=== PATIENT | male | born 1980 | race American Indian/Alaskan Native ===

== ENCOUNTER 2018-12-12 08:27 | Emergency (ER) | payer MEDICAID ==
[2018-12-12] MEDS ORDERED: BOOSTRIX IM ONE (09:11)
--- NOTE | 2018-12-12 09:15 | Emergency Department Report ---
ED Psych HPI - General Chief Complaint: Psych Stated Complaint: SUICIDAL Source: patient Mode of arrival: Ambulatory - History of Present Illness Initial Comments: 38 year old man with suicidal gesture and ideation. He states his twin sister was killed in a motor vehicle accident yesterday. He states he was "suicidal anyway". He admitted to crack cocaine abuse last night as well as alcohol consumption. He scraped his right forearm with a piece of glass. He does not know when his last tetanus shot was. He states that he has a history of asthma and his breathing feels somewhat tight but does not actually have chest tightness pressure or pain. He admits to depression. MD Complaint: suicidal ideation, feels depressed -: Gradual, month(s) Associated Psychiatric Symptoms: depression History of same: Yes Quality: constant Improves With: none Worsens With: none Context: recent alcohol abuse, recent drug abuse Associated Symptoms: denies other symptoms (except as above) Treatments Prior to Arrival: none If Self Harm: admits thoughts of, intentional overdose (cocaine abuse), self- inflicted trauma - Related Data Allergies Allergy/AdvReac Type Severity Reaction Status Date / Time No Known Allergies Allergy Unverified 12/12/18 08:31 ED Review of Systems ROS: Stated complaint: SUICIDAL Other details as noted in HPI Constitutional: denies: chills, fever Eyes: denies: eye pain, eye discharge, vision change ENT: denies: ear pain, throat pain Respiratory: other. denies: cough, shortness of breath, wheezing Cardiovascular: denies: chest pain, palpitations Endocrine: no symptoms reported Gastrointestinal: denies: abdominal pain, nausea, diarrhea Genitourinary: denies: urgency, dysuria Musculoskeletal: as per HPI. denies: back pain, joint swelling, arthralgia Skin: denies: rash, lesions Neurological: denies: headache, weakness, paresthesias Psychiatric: as per HPI, depression, suicidal thoughts. denies: anxiety Hematological/Lymphatic: denies: easy bleeding, easy bruising ED Past Medical Hx - Past Medical History Previous Medical History?: Yes Hx Psychiatric Treatment: Yes (Bi polar) - Surgical History Past Surgical History?: No - Social History Smoking Status: Current Every Day Smoker Substance Use Type: Alcohol, Cocaine ED Physical Exam - General Limitations: No Limitations General appearance: alert, in no apparent distress - Head Head exam: Present: atraumatic, normocephalic - Eye Eye exam: Present: normal appearance. Absent: scleral icterus - ENT ENT exam: Present: mucous membranes moist - Neck Neck exam: Present: normal inspection. Absent: meningismus - Respiratory Respiratory exam: Present: normal lung sounds bilaterally. Absent: respiratory distress - Cardiovascular Cardiovascular Exam: Present: regular rate, normal rhythm. Absent: systolic murmur, diastolic murmur, rubs, gallop - GI/Abdominal GI/Abdominal exam: Present: soft, normal bowel sounds. Absent: distended, tenderness, guarding, rebound - Rectal Rectal exam: Present: deferred - Extremities Exam Extremities exam: Present: normal inspection - Back Exam Back exam: Present: normal inspection - Neurological Exam Neurological exam: Present: alert, oriented X3, CN II-XII intact. Absent: motor sensory deficit - Psychiatric Psychiatric exam: Present: normal affect, normal mood - Skin Skin exam: Present: warm, dry, normal color. Absent: intact (linear abrasion of the dorsum of the forearm probably about 12 cm in length and superficial, dermis intact), rash ED Course Vital Signs 12/12/18 08:33 Temperature 98.1 F Pulse Rate 91 H Respiratory 16 Rate Blood Pressure 112/73 O2 Sat by Pulse 97 Oximetry - Reevaluation(s) Reevaluation #1: Discussed with mental health. 1013 as executed. Transfer is pending. 12/12/18 10:53 ED Medical Decision Making - Lab Data Result diagrams: 12/12/18 09:25 12/12/18 09:25 Laboratory Results - last 24 hr 12/12/18 09:25 Sodium 143 Potassium 3.9 Chloride 101.0 Carbon Dioxide 27 Anion Gap 19 BUN 20 Creatinine 1.0 Estimated GFR > 60 BUN/Creatinine Ratio 20 Glucose 121 H Calcium 9.1 Laboratory Results - last 24 hr 12/12/18 12/12/18 12/12/18 09:25 09:25 09:25 WBC RBC Hgb Hct MCV MCH MCHC RDW Plt Count Lymph % (Auto) [place] % (Auto) Eos % (Auto) Baso % (Auto) Lymph # [place] # Eos # Baso # Seg Neutrophils % Seg Neutrophils # Sodium 143 Potassium 3.9 Chloride 101.0 Carbon Dioxide 27 Anion Gap 19 BUN 20 Creatinine 1.0 Estimated GFR > 60 BUN/Creatinine Ratio 20 Glucose 121 H Calcium 9.1 Total Bilirubin Direct Bilirubin AST ALT Alkaline Phosphatase Total Creatine Kinase CK-MB (CK-2) CK-MB (CK-2) Rel Index Total Protein Albumin Albumin/Globulin Ratio Salicylates < 0.3 L Acetaminophen < 5.0 L Plasma/Serum Alcohol 12/12/18 12/12/18 12/12/18 09:25 09:25 09:25 WBC 10.8 RBC 4.79 Hgb 15.7 H Hct 45.5 MCV 95 H MCH 33 H MCHC 34 RDW 14.2 Plt Count 252 Lymph % (Auto) 24.5 [place] % (Auto) 13.3 H Eos % (Auto) 3.0 Baso % (Auto) 0.3 Lymph # 2.7 [place] # 1.4 H Eos # 0.3 Baso # 0.0 Seg Neutrophils % 58.9 Seg Neutrophils # 6.4 Sodium Potassium Chloride Carbon Dioxide Anion Gap BUN Creatinine Estimated GFR BUN/Creatinine Ratio Glucose Calcium Total Bilirubin 0.20 Direct Bilirubin < 0.2 AST 26 ALT 31 Alkaline Phosphatase 65 Total Creatine Kinase 350 H CK-MB (CK-2) 2.3 CK-MB (CK-2) Rel Index 0.6 Total Protein 7.0 Albumin 4.2 Albumin/Globulin Ratio 1.5 Salicylates Acetaminophen Plasma/Serum Alcohol < 0.01 - EKG Data -: EKG Interpreted by Me EKG shows normal: sinus rhythm, axis, intervals, QRS complexes, ST-T waves Rate: normal - EKG Data Interpretation: no acute changes Critical care attestation.: If time is entered above; I have spent that time in minutes in the direct care of this critically ill patient, excluding procedure time. ED Disposition Clinical Impression: Bipolar disorder with severe depression, Suicidal ideation Forearm abrasion Qualifiers: Encounter type: initial encounter Laterality: right Qualified Code(s): S50.811A - Abrasion of right forearm, initial encounter Disposition: DC/TX-65 PSY HOSP/PSY UNIT Is pt being admited?: No Does the pt Need Aspirin: No Condition: Stable Time of Disposition: 10:53
[2018-12-12 10:04] LABS: BUN/Creatinine Ratio 20; Blood Urea Nitrogen 20 mg/dL (9-20); Calcium 9.1 mg/dL (8.4-10.2); Hemolysis Index 18
[2018-12-12 10:07] LABS: Basophils % (Auto) 0.3 % (0.0-1.8); Eosinophils # (Auto) 0.3 K/mm3 (0.0-0.4); Hematocrit 45.5 % (35.5-45.6); Hemoglobin 15.7 gm/dl (11.8-15.2); Lymphocytes # (Auto) 2.7 K/mm3 (1.2-5.4); Lymphocytes % (Auto) 24.5 % (13.4-35.0); Mean Corpuscular HGB Conc 34 % (32-34); Mean Corpuscular Volume 95 fl (84-94); Monocytes # (Auto) 1.4 K/mm3 (0.0-0.8); Monocytes % (Auto) 13.3 % (0.0-7.3); Platelet Count 252 K/mm3 (140-440); Red Blood Count 4.79 M/mm3 (3.65-5.03); Red Cell Distribution Width 14.2 % (13.2-15.2)
[2018-12-12 10:10] LABS: Creatine Kinase MB 2.3 ng/mL (0.0-4.0)
[2018-12-12 10:11] LABS: Alanine Aminotransferase 31 units/L (7-56); Albumin 4.2 g/dL (3.9-5)
[2018-12-12 10:13] LABS: Bilirubin,Direct < 0.2 mg/dL (0-0.2)
[2018-12-12 12:17] LABS: Bilirubin,Urine NEG (Negative); Blood,Urine NEG (Negative); Color,Urine Yellow (Yellow); Mucus,Urine FEW /HPF; Protein,Urine <15 mg/dL mg/dL (Negative); Urobilinogen,Urine < 2.0 mg/dL (<2.0)
[2018-12-12 12:31] LABS: RBC,Urine < 1.0 /HPF (0.0-6.0)
[2018-12-12 12:35] LABS: Amphetamine Screen,Urine PRESUMPTIVE NEGATIVE; Methadone Screen,Urine PRESUMPTIVE NEGATIVE; Opiate Screen,Urine PRESUMPTIVE NEGATIVE
[2018-12-12 12:53] LABS: Benzodiazepines Screen,Urine PRESUMPTIVE POSITIVE; Cannabinoid Screen,Urine PRESUMPTIVE POSITIVE; Cocaine Screen,Urine PRESUMPTIVE POSITIVE
[2018-12-13] MEDS ORDERED: PROVENTIL IH ONE (11:01)
[2018-12-13] MEDS ORDERED: PROVENTIL IH SCH (14:00)
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
[2018-12-13] MEDS: DESYREL PO SCH (22:15)
[2018-12-14] MEDS ORDERED: IBUPROFEN PO ONE (11:25)
[2018-12-14] MEDS ORDERED: GEODON IM ONE (12:22)
--- NOTE | 2018-12-14 19:10 | Progress Note ---
Subjective - Reason for Consult Consult date: 12/14/18 Reason for consult: follow up - Chief Complaint Chief complaint: "I got upset." 38 year old man with suicidal ideation and self harming behavior by cutting his right forearm. He states suicide is on his mind all the time. He wants inpatient treatment. UDS is positive for benzo, cocaine, and thc. ETOh level is <0.01. He was on the phone over 10minutes and was told to get off the phone by staff. He states he became agitated. He is remorseful for his behavior. Mental Status Exam - Exam Orientation: time, place, person Affect: depressed Mood: congruent with affect Thought content: other (flashbacks and trauma related ) Thought Process: Circumstantial, Tangential Perceptions: none Speech: pressured Concentration: distractible Motor activity: restless Level of consciousness: alert Memory: Intact Sleep Symptoms: Difficulty Falling Asleep Appetite: decreased Interaction: cooperative Mini mental status exam(if necessary): 24-30 Mental Status Exam - Vital signs Last Vital Signs Temp 98.3 F 12/14/18 14:17 Pulse 75 12/14/18 14:17 Resp 18 12/14/18 14:17 BP 104/55 12/14/18 14:17 Pulse Ox 95 12/14/18 14:17 Assessment and Plan Impression: suicidal ideation with self harming behavior by cutting right forearm and burning with cigarettes UDS + for cocaine, thc, and benzo No signs of benzo withdrawal EtOH <0.01 but reports alcohol use history of bipolar disorder and PTSD Cognitive distortions, self harming behavior, mood dysregulation, interpersonal relationship problems, and rage episodes meet criteria for a cluster B personality disorder, but it is unclear if these symptoms occur in the context of substance abuse. Recommendations: Continue 1013 Restart home meds: depakote 500mg bid for mood trazodone 150mg hs for sleep vistaril 25mg tid prn for anxiety hold zoloft due to concerns for mood destabilization associated with bipolar disorder. risks and benefits discussed, including toxicity monitor for benzo or alcohol withdrawal. --none currently dispo: inpatient psychiatric facility staffed with Dr. Martinez
[2018-12-14] MEDS: DESYREL PO SCH (22:15)
--- NOTE | 2018-12-15 10:45 | Progress Note ---
Subjective - Reason for Consult Consult date: 12/15/18 Reason for consult: Psychiatry Follow-up - Chief Complaint Chief complaint: "My life is hard" 38 year old AA male presented to the ER for self harming behavior for cutting his right FA. Today the patient was calm and cooperative during the assessment. He stated that his life is "hard" and he always think about committing suicide. He would not confirm or deny SI's when asked. He stated that the of his sister most recently exacerbated his "suicide behavior." He stated that he need inpatient psy services. He denies HI's and AVh's. He denies any side effects of his medications. Mental Status Exam - Vital signs Last Vital Signs Temp 98.5 F 12/15/18 09:13 Pulse 80 12/15/18 09:13 Resp 16 12/15/18 09:13 BP 104/74 12/15/18 09:13 Pulse Ox 100 12/15/18 09:13 - Exam Narrative exam: MSE: Appearance: calm, cooperative Behavior: regular eye contact Speech: regular rate and tone Mood: "okay" Affect: congruent to mood Thought Process: tangent Thought Content: denies HI's and AVH's Motor Activity: sitting up in bed Cognition: A/O x3 Insight: variable Judgment: variable Assessment and Plan Impression: Unspecified Mood DO. Substance Use DO (cocaine). Cannabis Use DO. Self harming behavior. Today the patient was calm and cooperative during the assessment. DDx: Bipolar DO, Substance Induced Mood DO Recommendation/Plan: Continue 1013, Depakote 500 mg PO BID for mood, Trazodone 150 mg PO HS for sleep, and Vistaril 25 mg PO TID PRN for acute anxiety. Discussed possible suicidality/medication induced jonny with the patient, he verbalized understanding. Dispo: The patient was referred to inpatient psy services. Will staff with Dr Clemente Martinez.
[2018-12-15] MEDS: VISTARIL PO PRN (22:05)
[2018-12-15] MEDS: DESYREL PO SCH (22:05)
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
--- NOTE | 2018-12-16 11:07 | Progress Note ---
Subjective - Reason for Consult Consult date: 12/16/18 Reason for consult: Psychiatry Follow-up - Chief Complaint Chief complaint: "I am doing well today" 38 year old AA male presented to the ER for self harming behavior for cutting his right FA. Today the patient was calm and cooperative during the assessment. He stated that he have done some reflecting about his life and denies that he want to kill himself. He stated that he will follow up with outpatient psy services when discharged. He denies SI/HI's and AVH's. He denies any side effects of hie medications. This is the first day the patient have not endorsed SI's. Mental Status Exam - Vital signs Last Vital Signs Temp 98.3 F 12/16/18 10:15 Pulse 84 12/16/18 10:15 Resp 20 12/16/18 10:15 BP 106/79 12/16/18 10:15 Pulse Ox 99 12/16/18 10:15 - Exam Narrative exam: MSE: Appearance: calm, cooperative Behavior: regular eye contact Speech: regular rate and tone Mood: "okay" Affect: congruent to mood Thought Process: circumstantial Thought Content: denies SI/HI's and AVH's Motor Activity: sitting up in bed Cognition: A/O x3 Insight: variable to fair Judgment: variable to fair Assessment and Plan Impression: Unspecified Mood DO. Substance Use DO (cocaine). Cannabis Use DO. Self harming behavior. Today the patient was calm and cooperative during the assessment. DDx: Bipolar DO, Substance Induced Mood DO Recommendation/Plan: Reevaluate the patient's 1013 in 24 hours. If the patient's 1013 is rescinded, a safety contract and suicide risk assessment will be completed. Continue Depakote 500 mg PO BID for mood, Trazodone 150 mg PO HS for sleep, and Vistaril 25 mg PO TID PRN for acute anxiety. Discussed possible suicidality/medication induced jonny with the patient, he verbalized understanding. Dispo: If the patient's 1013 is rescinded, he can follow up with [facility] for outpatient psy services. Will staff with Dr Clemente Martinez.
[2018-12-16] MEDS: DESYREL PO SCH (22:03)
[2018-12-16] MEDS: VISTARIL PO PRN (22:05)
[2018-12-17] MEDS ORDERED: TYLENOL ONE (00:24)
[2018-12-17] MEDS ORDERED: TYLENOL PO ONE (00:38)
--- NOTE | 2018-12-17 17:57 | Progress Note ---
Subjective - Reason for Consult Reason for consult: psych consult - Chief Complaint Chief complaint: 38 year old BM. Patient today notes that he is doing well. He denies any depression. No SI/HI/AH/VH. He is smiling and engaging- noting that he has various support systems in place (such as his who is waiting for him in the ER) when he discharges. He notes no issues with the meds. No euphoria or psychosis. He's been in contact with aids social worker. Mental Status Exam - Vital signs Last Vital Signs Temp 98.2 F 12/17/18 08:10 Pulse 82 12/17/18 08:10 Resp 18 12/17/18 08:10 BP 109/67 12/17/18 08:10 Pulse Ox 99 12/17/18 08:10 - Exam Orientation: time, place, person Affect: normal Mood: appropriate Thought Process: Intact Perceptions: none Speech: normal rate and pattern Concentration: focused Motor activity: normal Level of consciousness: alert Memory: Intact Interaction: cooperative, pleasant Mini mental status exam(if necessary): 24-30 Assessment and Plan Assessment and Plan Patient notes that he is doing well. He has appropriate support and notes no SI/HI/AH/AH. Impression: Unspecified Mood DO. Substance Use DO (cocaine). Cannabis Use DO. DDx: Bipolar DO, Substance Induced Mood DO Recommendation/Plan: Rescind 1013- follow up with outpatient psychiatry
[2018-12-17 18:27] VITALS: BP 120/72
== END 2018-12-17 18:34 ==
LOC: EEVIPCON 08:27 → ED 08:27
DX: T40.5X2A Poisoning by cocaine, intentional self-harm, initial encounter (principal); S50.811A Abrasion of right forearm, initial encounter; F31.9 Bipolar disorder, unspecified; F32.9 Major depressive disorder, single episode, unspecified; F10.129 Alcohol abuse with intoxication, unspecified; J45.909 Unspecified asthma, uncomplicated; F17.200 Nicotine dependence, unspecified, uncomplicated; X78.0XXA Intentional self-harm by sharp glass, initial encounter; Y92.89 Other specified places as the place of occurrence of the external cause; Y93.89 Activity, other specified; Y99.8 Other external cause status
CPT/HCPCS: 36415; 80048; 80076; 80164; 80307; 81001; 82150; 82550; 82553; 83690; 85025; 90471; 90715; 93005; 93010; 94640; 96372; 99284; G0480; J3486; 80320; Q0177

== ENCOUNTER 2019-07-13 21:06 | Emergency (ER) | payer MEDICAID ==
--- NOTE | 2019-07-13 21:24 | Emergency Department Report ---
Blank Doc - Documentation Documentation: This is a 39-year-old male that presents with SI. Stated wants to kill self. This initial assessment/diagnostic orders/clinical plan/treatment(s) is/are subject to change based on patient's health status, clinical progression and re- assessment by fellow clinical providers in the ED. Further treatment and workup at subsequent clinical providers discretion. Patient/guardians urged not to elope from the ED as their condition may be serious if not clinically assessed and managed. Initial orders include: 1- Patient sent to MAIN ED for further evaluation and treatment 2- lead setter was notified to have patient be brought back [facility]. 3- RN was notified to keep patient as close range and observation until room available 4- Patient presents with substantial risk of imminent harm to self, appears to be so unable to care for his/her own physical health and safety as to create an imminently life-endangering crisis, and has committed/expressed life endangering crisis to self. Due to this and other complaints, patient is put on psych hold.
--- NOTE | 2019-07-13 22:12 | Emergency Department Report ---
HPI - General Chief Complaint: Psych Time Seen by Provider: 07/13/19 21:23 - HPI HPI: 39-year-old -[place] male presents to the emergency department with depression, suicidal ideations and a suicide attempt. The patient has a history of bipolar disorder, depression and PTSD. He previously was on Depakote, Seroquel and trazodone but says he has not been taking them for the past 6 months. The patient recently lost his mother around [place] and then his aunt around . Patient says that he relapsed with his drug use. This evening, around 6:30 PM, the patient took 7 pills of Depakote, 7 of trazodone, 2 pills of Zoloft, smoked some crack and drank 24 ounces of beer. Patient says that he feels dizzy after all of these medications and substances. The patient has a history of suicide attempts in the past. He says that he could also cut his wrists and says that he has access to a revolver. However the patient now says that he is looking to get some help. ED Past Medical Hx - Past Medical History Previous Medical History?: Yes Hx Psychiatric Treatment: Yes (PTSD, bipolar, depression) Hx COPD: Yes - Surgical History Past Surgical History?: No - Social History Smoking Status: Current Every Day Smoker Substance Use Type: Alcohol - Medications Home Medications: Home Medications Medication Instructions Recorded Confirmed Last Taken Type Depakote ER 500 mg PO BID 12/15/18 07/14/19 Unknown History Trazodone HCl 150 mg PO HS 12/15/18 07/14/19 Unknown History ED Review of Systems ROS: Stated complaint: MH Other details as noted in HPI Comment: All other systems reviewed and negative Constitutional: denies: chills, fever Eyes: denies: eye pain, vision change ENT: denies: ear pain, throat pain Respiratory: denies: cough, shortness of breath Cardiovascular: denies: chest pain, palpitations Gastrointestinal: denies: abdominal pain, vomiting Genitourinary: denies: dysuria, discharge Musculoskeletal: denies: back pain, arthralgia Skin: denies: rash, lesions Neurological: other (dizzy). denies: weakness Physical Exam - Physical Exam Physical Exam: GENERAL: The patient is well-developed well-nourished. HEENT: Normocephalic. Atraumatic. Patient has moist mucous membranes. EYES: Extraocular motions are intact. NECK: Supple. Trachea is midline. CHEST/LUNGS: Clear to auscultation. There is no respiratory distress noted. HEART/CARDIOVASCULAR: Regular. There is no tachycardia. There is no murmur. ABDOMEN: Abdomen is soft, nontender. Patient has normal bowel sounds. There is no abdominal distention. SKIN:Skin is warm and dry. . NEURO: The patient is awake, alert, and oriented. The patient is cooperative. The patient has no focal neurologic deficits. Normal speech. Cranial nerves II through XII grossly intact. MUSCULOSKELETAL: There is no tenderness or deformity. There is no limitation range of motion. There is no evidence of acute injury. ED Medical Decision Making - Lab Data Result diagrams: 07/13/19 23:50 07/13/19 22:00 - Medical Decision Making This patient presents to the emergency department with the complaints of depression, suicidal ideations, and what appears to be a suicide attempt. For this reason the patient has been made a 1013. He says that he took 7 Depakote, 7 trazodone, 2 Paxil, some crack cocaine and alcohol. Poison control was contacted. His vital signs have been stable throughout his ED course. The patient has had 2 different EKGs that are normal sinus rhythm without any signs of ST elevation MA, ischemia, dysrhythmia. The QT or QTC intervals never widened. The patient's valproic acid level peaked within the normal range and then has started to trend downwards. The rest of the patient's labs are unremarkable including blood alcohol, including cocaine, except for positive marijuana. At this point it would have been about 9 or 10 hours since the patient's alleged ingestion and/or suicide attempt. He is resting comfortably in no acute distress at this time. He is medically cleared for psychiatric placement. Critical Care Time: No Critical care attestation.: If time is entered above; I have spent that time in minutes in the direct care of this critically ill patient, excluding procedure time. ED Disposition Clinical Impression: Suicidal ideations Depression Qualifiers: Depression Type: unspecified Qualified Code(s): F32.9 - Major depressive disorder, single episode, unspecified Suicide attempt by multiple drug overdose Qualifiers: Encounter type: initial encounter Qualified Code(s): T50.912A - Poisoning by multiple unspecified drugs, medicaments and biological substances, intentional self-harm, initial encounter Disposition: DC/TX-65 PSY HOSP/PSY UNIT Is pt being admited?: No Condition: Stable Referrals: PRIMARY CARE, [Primary Care Provider] - 3-5 Days Time of Disposition: 02:57
[2019-07-13 22:31] LABS: BUN/Creatinine Ratio 17; Blood Urea Nitrogen 12 mg/dL (9-20); Calcium 9.8 mg/dL (8.4-10.2); Hemolysis Index 53
[2019-07-13 22:36] LABS: Alanine Aminotransferase 15 units/L (7-56); Albumin 4.5 g/dL (3.9-5)
[2019-07-13 22:40] LABS: Bilirubin,Direct < 0.2 mg/dL (0-0.2)
[2019-07-13 22:46] LABS: Amphetamine Screen,Urine PRESUMPTIVE NEGATIVE; Benzodiazepines Screen,Urine PRESUMPTIVE NEGATIVE; Cocaine Screen,Urine PRESUMPTIVE NEGATIVE; Methadone Screen,Urine PRESUMPTIVE NEGATIVE; Opiate Screen,Urine PRESUMPTIVE NEGATIVE
[2019-07-13 22:56] LABS: Bilirubin,Urine NEG (Negative); Blood,Urine NEG (Negative); Color,Urine Straw (Yellow); Protein,Urine <15 mg/dL mg/dL (Negative); Urobilinogen,Urine < 2.0 mg/dL (<2.0); WBC,Urine < 1.0 /HPF (0.0-6.0)
[2019-07-13 23:00] LABS: Cannabinoid Screen,Urine PRESUMPTIVE POSITIVE
[2019-07-14 01:19] LABS: Hematocrit 44.4 % (35.5-45.6); Mean Corpuscular Volume 95 fl (84-94); Red Blood Count 4.67 M/mm3 (3.65-5.03)
[2019-07-14 01:20] LABS: Basophils % (Auto) 0.3 % (0.0-1.8); Eosinophils % (Auto) 1.6 % (0.0-4.3); Lymphocytes % (Auto) 27.9 % (13.4-35.0); Mean Corpuscular HGB Conc 34 % (32-34); Monocytes % (Auto) 10.5 % (0.0-7.3); Platelet Count 199 K/mm3 (140-440); Red Cell Distribution Width 13.8 % (13.2-15.2)
[2019-07-14 01:21] LABS: Eosinophils # (Auto) 0.2 K/mm3 (0.0-0.4); Lymphocytes # (Auto) 2.7 K/mm3 (1.2-5.4)
[2019-07-14] MEDS ORDERED: IBUPROFEN 600 MG TAB PO ONE (08:09)
[2019-07-14] MEDS ORDERED: NICOTINE 21 MG/24 HR PATCH TD ONE (12:00)
[2019-07-14 14:04] VITALS: BP 94/73
== END 2019-07-14 17:55 ==
LOC: ED 21:06
DX: T42.6X2A Poisoning by other antiepileptic and sedative-hypnotic drugs, intentional self-harm, initial encounter (principal); T43.212A Poisoning by selective serotonin and norepinephrine reuptake inhibitors, intentional self-harm, initial encounter; T43.222A Poisoning by selective serotonin reuptake inhibitors, intentional self-harm, initial encounter; F32.9 Major depressive disorder, single episode, unspecified; F43.10 Post-traumatic stress disorder, unspecified; F31.9 Bipolar disorder, unspecified; F17.200 Nicotine dependence, unspecified, uncomplicated; J45.909 Unspecified asthma, uncomplicated; Y92.89 Other specified places as the place of occurrence of the external cause
CPT/HCPCS: 36415; 80048; 80076; 80164; 80307; 80320; 81001; 82140; 85025; 93005; 93010; 99284; G0480

== ENCOUNTER 2020-02-26 13:14 | Emergency (ER) | payer MEDICAID ==
[2020-02-26 13:24] VITALS: BP 168/88
[2020-02-26] MEDS ORDERED: ACETAMINOPHEN W/CODEINE 300-30 MG TAB PO ONE (14:46)
--- NOTE | 2020-02-26 15:14 | XRay Report ---
AP AND LATERAL VIEWS BOTH KNEES INDICATION: bilateral knee pain. COMPARISON: No relevant prior imaging study available. FINDINGS: No acute fracture or dislocation is seen bilaterally. No significant degenerative changes. No focal s oft tissue swelling. IMPRESSION: 1. No acute findings. Signer Name: Jevon Jackson MD Signed: 02/26/2020 3:09 PM Workstation Name: [id number]
--- NOTE | 2020-02-26 15:43 | Emergency Department Report ---
ED General Adult HPI - General Chief complaint: Pain General Stated complaint: PAIN 3WKS Time Seen by Provider: 02/26/20 14:17 Source: patient Mode of arrival: Ambulatory Limitations: No Limitations - History of Present Illness Initial comments: 40 yr old male with pmhx of PTSD, bipolar depression presents to ED with multiple complaints. Pt reports that for the past 3 weeks he has been having diffuse joint and muscle pain but more so to bilateral knees, low back and wrist. He states there have been times that while walking he feels like he is about to fall because his knees give out on him. He states any kind of movement makes his joints hurt. He reports swelling mainly to his knees especially to left. He denies injury. He reports associated intermittent dizzy spells, DAN, diffuse abdominal pain, diarrhea and dysuria. He reports no CP, SOB, URI or cough, n/v, fever, chills, neuro symptoms or any other symptoms at this time. He denies any ill contacts, COVID 19 contacts or recent travel. MD Complaint: Diffuse Joint pain, Bilateral LE pain, Low back pain, Abd pain, Diarrhea -: week(s) (3) Severity scale (0 -10): 10 - Related Data Home Medications Medication Instructions Recorded Confirmed Last Taken Depakote ER 500 mg PO BID 12/15/18 07/14/19 Unknown Trazodone HCl 150 mg PO HS 12/15/18 07/14/19 Unknown Previous Rx's Medication Instructions Recorded Last Taken Type Ketorolac [Toradol] 10 mg PO Q6H PRN #20 tablet 02/26/20 Unknown Rx Methocarbamol [Robaxin] 500 mg PO TID PRN #30 tablet 02/26/20 Unknown Rx Allergies Allergy/AdvReac Type Severity Reaction Status Date / Time Fish Containing Products Allergy Rash Verified 07/13/19 21:13 shellfish derived Allergy Rash Verified 07/13/19 21:13 ED Review of Systems ROS: Stated complaint: PAIN 3WKS Other details as noted in HPI Comment: All other systems reviewed and negative Constitutional: denies: chills, diaphoresis, fever, weakness Eyes: denies: eye pain, eye discharge, vision change ENT: denies: ear pain, throat pain Respiratory: denies: cough, shortness of breath, wheezing Cardiovascular: denies: chest pain, palpitations Gastrointestinal: abdominal pain, diarrhea. denies: nausea Genitourinary: dysuria. denies: urgency Musculoskeletal: back pain, joint swelling, arthralgia, myalgia Skin: denies: rash Neurological: headache, vertigo. denies: weakness, numbness, paresthesias, confusion, abnormal gait Psychiatric: denies: anxiety, depression ED Past Medical Hx - Past Medical History Previous Medical History?: Yes Hx Psychiatric Treatment: Yes (PTSD, bipolar, depression) Hx COPD: Yes - Social History Smoking Status: Current Every Day Smoker Substance Use Type: Alcohol - Medications Home Medications: Home Medications Medication Instructions Recorded Confirmed Last Taken Type Depakote ER 500 mg PO BID 12/15/18 07/14/19 Unknown History Trazodone HCl 150 mg PO HS 12/15/18 07/14/19 Unknown History Ketorolac [Toradol] 10 mg PO Q6H PRN #20 tablet 02/26/20 Unknown Rx Methocarbamol [Robaxin] 500 mg PO TID PRN #30 tablet 02/26/20 Unknown Rx ED Physical Exam - General Limitations: No Limitations General appearance: alert, in no apparent distress - Head Head exam: Present: atraumatic, normocephalic, normal inspection - Eye Eye exam: Present: normal appearance, PERRL, EOMI Pupils: Present: normal accommodation - ENT ENT exam: Present: normal exam, normal orophraynx, mucous membranes moist - Neck Neck exam: Present: normal inspection, full ROM - Respiratory Respiratory exam: Absent: normal lung sounds bilaterally, respiratory distress - Cardiovascular Cardiovascular Exam: Present: regular rate, normal rhythm, normal heart sounds - GI/Abdominal GI/Abdominal exam: Present: soft, tenderness (mild diffuse ttp, no guarding or rebound ). Absent: guarding, rebound, rigid - Extremities Exam Extremities exam: Present: normal inspection, full ROM, tenderness (bilateral knees; no apparent swelling, effusion, erythema or ecchymosis ). Absent: pedal edema, joint swelling - Back Exam Back exam: Present: normal inspection, full ROM, paraspinal tenderness (upper lumbar area bilateraly ). Absent: vertebral tenderness - Neurological Exam Neurological exam: Present: alert, oriented X3, CN II-XII intact, normal gait - Psychiatric Psychiatric exam: Present: normal affect, normal mood - Skin Skin exam: Present: intact ED Course Vital Signs 02/26/20 02/26/20 13:23 16:41 Temperature 97.6 F Pulse Rate 90 Respiratory 16 18 Rate Blood Pressure 168/88 [Right] O2 Sat by Pulse 96 Oximetry ED Medical Decision Making - Lab Data Result diagrams: 02/26/20 15:13 02/26/20 15:13 - EKG Data EKG shows normal: sinus rhythm Rate: normal - EKG Data Interpretation: no acute changes, normal EKG - Medical Decision Making 1716 -- Pt presented to ED with multiple complaints -- diffuse muscle pain, joint pain especially in knees, low back pain, abd pain, dysuria, DAN, intermittent dizzy spells and diarrhea. Labs/CT/xray/EKG reviewed - w/u today unremarkable. Pt currently resting comfortably and does not appear to be in any acute distress. He is awake, alert, oriented x 3 and well appearing, not toxic and not dehydrated and he is neurologically intact. He has normal gait Exact cause of patient symptoms unclear but there is no indication for further testing, admission or emergent consult at this time. Discussed results with patient. Encouraged him to f/u with local PCP (name given on d/c instructions) for further evaluation of his symptoms. If he gest worse or if anything changes he should come back to ED. Pt expressed understanding of instructions and agrees with plan. Pt stable at time of d.c Critical care attestation.: If time is entered above; I have spent that time in minutes in the direct care of this critically ill patient, excluding procedure time. ED Disposition Clinical Impression: Joint pain, Abdominal pain, Low back pain, Diarrhea Disposition: TO HOME OR SELFCARE Is pt being admited?: No Does the pt Need Aspirin: No Condition: Stable Instructions: Arthralgia (ED), Knee Pain (ED), Abdominal Pain (ED), Acute Low Back Pain (ED), Acute Diarrhea (ED) Additional Instructions: I recommend you take medications as prescribed. I recommend you follow up with local PCP for further evaluation if your symptoms continues. Return to ED if symptoms changes or worsens. Prescriptions: Methocarbamol [Robaxin] 500 mg PO TID PRN #30 tablet PRN Reason: Pain , Severe (7-10) Ketorolac [Toradol] 10 mg PO Q6H PRN #20 tablet PRN Reason: Pain Referrals: YUNIOR DESIR MD [Staff Physician] - 3-5 Days Time of Disposition: 17:11
--- NOTE | 2020-02-26 15:51 | Cat Scan Report ---
CT ABDOMEN AND PELVIS WITHOUT CONTRAST INDICATION / CLINICAL INFORMATION: abdominal pain/low back pain. TECHNIQUE: Axial CT images were obtained through the abdomen and pelvis without IV contrast. All CT scans at [facility] are performed using CT dose reduction for ALARA by means of automated exposure control. COMPARISON: None available. FINDINGS: LOWER CHEST: No significant abnormality. LIVER: No significant abnormality. GALLBLADDER: No significant abnormality. BILE DUCTS: No significant abnormality. PANCREAS: No significant abnormality. SPLEEN: No significant abnormality. ADRENALS: No significant abnormality. RIGHT KIDNEY / URETER: No significant abnormality. LEFT KIDNEY / URETER: No significant abnormality. STOMACH / SMALL BOWEL: No significant abnormality. COLON: No significant abnormality. APPENDIX: No significant abnormality. PERITONEUM: No free fluid. No free air. No fluid collection. LYMPH NODES: No significant adenopathy. AORTA / ARTERIES: No significant abnormality. IVC / VEINS: No significant abnormality. URINARY BLADDER: No significant abnormality. REPRODUCTIVE ORGANS: No significant abnormality. ADDITIONAL FINDINGS: None. SKELETAL SYSTEM: No significant abnormality. IMPRESSION: No acute abnormality of the abdomen or pelvis. Signer Name: Bakari Schrader MD Signed: 02/26/2020 3:46 PM Workstation Name: [id number]
[2020-02-26 15:57] LABS: Basophils % (Auto) 0.4 % (0.0-1.8); Eosinophils # (Auto) 0.1 K/mm3 (0.0-0.4); Eosinophils % (Auto) 1.5 % (0.0-4.3); Hematocrit 44.7 % (35.5-45.6); Hemoglobin 15.2 gm/dl (11.8-15.2); Lymphocytes # (Auto) 1.8 K/mm3 (1.2-5.4); Mean Corpuscular HGB Conc 34 % (32-34); Mean Corpuscular Volume 95 fl (84-94); Monocytes # (Auto) 1.2 K/mm3 (0.0-0.8); Monocytes % (Auto) 12.6 % (0.0-7.3); Platelet Count 199 K/mm3 (140-440); Red Blood Count 4.72 M/mm3 (3.65-5.03); Red Cell Distribution Width 13.5 % (13.2-15.2)
[2020-02-26 16:00] LABS: Alanine Aminotransferase 16 units/L (7-56); Albumin 4.3 g/dL (3.9-5); BUN/Creatinine Ratio 26; Blood Urea Nitrogen 21 mg/dL (9-20); Calcium 9.7 mg/dL (8.4-10.2); Hemolysis Index 34
[2020-02-26 16:51] LABS: Bilirubin,Urine NEG (Negative); Blood,Urine NEG (Negative); Color,Urine Yellow (Yellow); Mucus,Urine FEW /HPF; Protein,Urine <15 mg/dL mg/dL (Negative); WBC,Urine < 1.0 /HPF (0.0-6.0)
== END 2020-02-26 17:20 | disposition home or self-care (01) ==
LOC: ED 13:14
DX: M54.5 Low back pain (principal); R10.9 Unspecified abdominal pain; R19.7 Diarrhea, unspecified; M25.562 Pain in left knee; M25.561 Pain in right knee; F31.9 Bipolar disorder, unspecified; J44.9 Chronic obstructive pulmonary disease, unspecified; F17.200 Nicotine dependence, unspecified, uncomplicated; Z79.899 Other long term (current) drug therapy; Z91.013 Allergy to seafood
CPT/HCPCS: 36415; 74176; 80053; 81001; 83690; 84484; 85025; 93005

== ENCOUNTER 2020-02-28 11:20 | Emergency (ER) | payer MEDICAID ==
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
[2020-02-28 12:35] LABS: Basophils % (Auto) 0.3 % (0.0-1.8); Eosinophils # (Auto) 0.2 K/mm3 (0.0-0.4); Eosinophils % (Auto) 1.5 % (0.0-4.3); Hematocrit 46.8 % (35.5-45.6); Hemoglobin 15.9 gm/dl (11.8-15.2); Lymphocytes # (Auto) 1.6 K/mm3 (1.2-5.4); Lymphocytes % (Auto) 12.4 % (13.4-35.0); Mean Corpuscular HGB Conc 34 % (32-34); Mean Corpuscular Volume 94 fl (84-94); Monocytes # (Auto) 1.7 K/mm3 (0.0-0.8); Monocytes % (Auto) 13.4 % (0.0-7.3); Platelet Count 232 K/mm3 (140-440); Red Blood Count 4.98 M/mm3 (3.65-5.03)
[2020-02-28 12:51] LABS: BUN/Creatinine Ratio 25; Blood Urea Nitrogen 25 mg/dL (9-20); Calcium 9.8 mg/dL (8.4-10.2); Hemolysis Index 18
[2020-02-28 14:53] LABS: Bilirubin,Urine NEG (Negative); Blood,Urine NEG (Negative); Color,Urine Yellow (Yellow); Mucus,Urine FEW /HPF; Protein,Urine <15 mg/dL mg/dL (Negative); Urobilinogen,Urine < 2.0 mg/dL (<2.0)
[2020-02-28 15:00] LABS: Amphetamine Screen,Urine PRESUMPTIVE NEGATIVE; Benzodiazepines Screen,Urine PRESUMPTIVE NEGATIVE; Cannabinoid Screen,Urine PRESUMPTIVE POSITIVE; Cocaine Screen,Urine PRESUMPTIVE POSITIVE; Methadone Screen,Urine PRESUMPTIVE NEGATIVE; Opiate Screen,Urine PRESUMPTIVE NEGATIVE
[2020-02-28] MEDS: traZODone 50 MG TAB PO SCH (22:27)
[2020-02-28] MEDS: DIVALPROEX ER 500 MG TAB PO SCH (22:28)
[2020-02-29] MEDS ORDERED: ZIPRASIDONE MESYLATE 20 MG VIAL IM ONE (09:51)
[2020-02-29] MEDS ORDERED: LORazepam 2 MG/ML VIAL ONE (09:51)
[2020-02-29] MEDS ORDERED: SERTRALINE 50 MG TAB PO SCH (10:00)
[2020-02-29] MEDS ORDERED: ZIPRASIDONE MESYLATE 20 MG VIAL IM PRN (10:05)
[2020-02-29] MEDS ORDERED: LORazepam 2 MG/ML VIAL IV ONE (10:06)
[2020-02-29] MEDS: DIVALPROEX ER 500 MG TAB PO SCH ×2 (11:34→21:56)
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
[2020-02-29 20:53] VITALS: BP 107/87
[2020-02-29] MEDS: traZODone 50 MG TAB PO SCH (21:57)
== END 2020-03-01 02:00 ==
LOC: ED 11:20 → EEVIPCON 11:20 → ED 03-01 02:00
DX: F43.10 Post-traumatic stress disorder, unspecified (principal); F14.10 Cocaine abuse, uncomplicated; Z91.14 Patient's other noncompliance with medication regimen; Z04.6 Encounter for general psychiatric examination, requested by authority; J44.9 Chronic obstructive pulmonary disease, unspecified; F31.9 Bipolar disorder, unspecified; F17.200 Nicotine dependence, unspecified, uncomplicated; F12.10 Cannabis abuse, uncomplicated; Z79.899 Other long term (current) drug therapy; Z91.013 Allergy to seafood
CPT/HCPCS: 36415; 80048; 80164; 80307; 81001; 85025; 96372; 96374; 99285; J2060; J3486; 80320; G0480

== ENCOUNTER 2020-03-09 12:12 | Emergency (ER) | payer MEDICAID ==
--- NOTE | 2020-03-09 13:02 | Event Note ---
ED Screening Note Date of service: 03/09/20 Time: 13:01 ED Screening Note: 30-year-old male with a history of depression, bipolar and PTSD presents for homicidal ideation and auditory hallucination telling him to kill someone This initial assessment/diagnostic orders/clinical plan/treatment(s) is/are subject to change based on patients health status, clinical progression and re- assessment by fellow clinical providers in the ED. Further treatment and workup at subsequent clinical providers discretion. Patient/guardian urged not to elope from the ED as their condition may be serious if not clinically assessed and managed. Initial orders include: Psych protocol ordered
[2020-03-09 13:46] LABS: Hematocrit 46.6 % (35.5-45.6); Hemoglobin 15.7 gm/dl (11.8-15.2); Mean Corpuscular HGB Conc 34 % (32-34); Mean Corpuscular Volume 96 fl (84-94); Platelet Count 275 K/mm3 (140-440); Red Blood Count 4.83 M/mm3 (3.65-5.03); Red Cell Distribution Width 13.7 % (13.2-15.2)
[2020-03-09 14:07] LABS: BUN/Creatinine Ratio 30; Blood Urea Nitrogen 39 mg/dL (9-20); Calcium 9.6 mg/dL (8.4-10.2); Hemolysis Index 6
[2020-03-09 14:15] LABS: Bilirubin,Urine NEG (Negative); Blood,Urine NEG (Negative); Color,Urine Yellow (Yellow); Mucus,Urine FEW /HPF; Protein,Urine <15 mg/dL mg/dL (Negative); RBC,Urine < 1.0 /HPF (0.0-6.0); Urobilinogen,Urine < 2.0 mg/dL (<2.0)
[2020-03-09 14:21] LABS: Amphetamine Screen,Urine Negative; Benzodiazepines Screen,Urine Negative; Methadone Screen,Urine Negative; Opiate Screen,Urine Negative
[2020-03-09 14:23] LABS: Basophils % (Manual) 0 % (0.0-1.8); Eosinophils % (Manual) 0 % (0.0-4.3); Platelet Estimate Consistent w Auto; RBC Morphology Normal; Total Cells Counted 100
[2020-03-09] MEDS ORDERED: ALPRAZolam 0.5 MG TAB PO ONE (14:56)
[2020-03-09 14:58] LABS: Cannabinoid Screen,Urine Positive; Cocaine Screen,Urine Positive
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
[2020-03-10] MEDS: DIVALPROEX ER 500 MG TAB PO SCH ×2 (11:14→23:44)
[2020-03-10] MEDS: risperiDONE 0.25 MG TAB PO SCH ×3 (11:14→23:45)
--- NOTE | 2020-03-10 22:35 | XRay Report ---
LEFT HAND 3 VIEWS LEFT WRIST 4 VIEWS INDICATION / CLINICAL INFORMATION: Left hand and wrist injury. COMPARISON: None available. FINDINGS: BONES and JOINT(S): No acute fracture or subluxation. No significant arthritis. SOFT TISSUES: No significant abnormality. ADDITIONAL FINDINGS: None. IMPRESSION: 1. No acute findings. Signer Name: Bakari Schrader MD Signed: 03/10/2020 10:30 PM Workstation Name: [id number]
--- NOTE | 2020-03-10 22:35 | XRay Report ---
LEFT HAND 3 VIEWS LEFT WRIST 4 VIEWS INDICATION / CLINICAL INFORMATION: Left hand and wrist injury. COMPARISON: None available. FINDINGS: BONES and JOINT(S): No acute fracture or subluxation. No significant arthritis. SOFT TISSUES: No significant abnormality. ADDITIONAL FINDINGS: None. IMPRESSION: 1. No acute findings. Signer Name: Bakari Schrader MD Signed: 03/10/2020 10:30 PM Workstation Name: [id number]
[2020-03-10] MEDS: traZODone 50 MG TAB PO SCH (23:43)
[2020-03-11] MEDS: risperiDONE 0.25 MG TAB PO SCH ×2 (10:58→21:32)
[2020-03-11] MEDS: DIVALPROEX ER 500 MG TAB PO SCH ×2 (10:58→21:31)
--- NOTE | 2020-03-11 11:30 | Progress Note ---
Subjective - Reason for Consult Consult date: 03/11/20 Reason for consult: MHE Requesting physician: ROBERTO MCCARTHY - Chief Complaint Chief complaint: Psych HPI Patient seen this AM, reports persistent depressed mood and SI. Describes sleep as on and off, appetite okay. Patient also endorses hearing voices. REVIEW OF SYSTEMS Constitutional: Negative for weight loss ENT: Negative for stridor Respiratory: Negative for cough or hemoptysis All other systems reviewed and are negative MENTAL STATUS EXAMINATION General Appearance: dressed appropriately Behavior: calm and cooperative. Mood: Depressed Affect and affective range: restricted, tearful Thought Process: goal directed Thought Content: Hallucinations Speech: Normal volume, Regular rate and rhythm Suicidal Ideation: Suicidal Homicidal Ideation: Denies HI Hallucinations: Auditory Delusions: None elicited Insight and Judgment: Limited Memory: Normal Assessment and Plan - Psychiatric problem (1) Major Depressive Disorder, Severe Current Visit: Yes Status: Acute (2) Cocaine Use Disorder Current Visit: Yes Status: Acute (3)Substance Induced Mood Disorderr Current Visit: Yes Status: Acute RECOMMENDATIONS Start Rispseridone 0.25mg po BID Start home depakote 500mg po BID Start Trazodone 50mg po qh Risks, benefits and alternatives of medications discussed with the patient, questions answered and consent obtained from patient. PSYCHOTHERAPY: Supportive psychotherapy provided MEDICAL: Per primary team DELIRIUM PRECAUTIONS: Please re-orient patient frequently, keep lights on during the day, and minimize benzodiazepines and opiates as these medications could worsen patient's confusion. 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 Please contact with any questions and/or concerns. Mental Status Exam - Vital signs Last Vital Signs Temp 98.6 F 03/11/20 09:36 Pulse 94 H 03/11/20 09:36 Resp 18 03/11/20 09:36 BP 132/83 03/11/20 09:36 Pulse Ox 96 03/11/20 09:36
[2020-03-11] MEDS: traZODone 50 MG TAB PO SCH (21:30)
--- NOTE | 2020-03-12 10:26 | Progress Note ---
Subjective - Reason for Consult Consult date: 03/12/20 Reason for consult: MHE Requesting physician: SHANNAN MCCARTHY - Chief Complaint Chief complaint: Psych HPI Patient seen this AM in room, says he is still don, depressed, grumpy and agitated and would like to know when he will be getting placed. Patient endorses SI, and HI. Reports night disturbances mostly nightmares. REVIEW OF SYSTEMS Constitutional: Negative for weight loss ENT: Negative for stridor Respiratory: Negative for cough or hemoptysis All other systems reviewed and are negative MENTAL STATUS EXAMINATION General Appearance: dressed appropriately Behavior: calm and cooperative. Mood: Depressed Affect and affective range: restricted, depressed Thought Process: goal directed Thought Content: Hallucinations Speech: Normal volume, Regular rate and rhythm Suicidal Ideation: Suicidal Homicidal Ideation: Denies HI Hallucinations: Auditory Delusions: None elicited Insight and Judgment: Limited Memory: Normal Assessment and Plan - Psychiatric problem (1) Major Depressive Disorder, Severe Current Visit: Yes Status: Acute (2) Cocaine Use Disorder Current Visit: Yes Status: Acute (3)Substance Induced Mood Disorderr Current Visit: Yes Status: Acute RECOMMENDATIONS Started haldol 2mg BID Start home depakote 500mg po BID Start Trazodone 50mg po qh Risks, benefits and alternatives of medications discussed with the patient, questions answered and consent obtained from patient. PSYCHOTHERAPY: Supportive psychotherapy provided MEDICAL: Per primary team DELIRIUM PRECAUTIONS: Please re-orient patient frequently, keep lights on during the day, and minimize benzodiazepines and opiates as these medications could worsen patient's confusion. 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 Please contact with any questions and/or concerns. Mental Status Exam - Vital signs Last Vital Signs Temp 97.6 F 03/12/20 08:07 Pulse 90 03/12/20 08:07 Resp 20 03/12/20 08:07 BP 122/71 03/12/20 08:07 Pulse Ox 98 03/12/20 08:07
[2020-03-12] MEDS: DIVALPROEX ER 500 MG TAB PO SCH ×2 (10:56→21:55)
[2020-03-12] MEDS ORDERED: risperiDONE 0.25 MG TAB ONE (10:56)
[2020-03-12] MEDS: risperiDONE 0.25 MG TAB PO SCH (18:58)
[2020-03-12] MEDS: HALOPERIDOL 2 MG TAB PO SCH (21:55)
[2020-03-12] MEDS: traZODone 50 MG TAB PO SCH (21:55)
--- NOTE | 2020-03-13 08:11 | Progress Note ---
Subjective - Reason for Consult Consult date: 03/13/20 Reason for consult: MHE Requesting physician: ROBERTO MCCARTHY - Chief Complaint Chief complaint: Psych HPI Patient seen this AM, says he would like to be discharged and he got a place that already accepted him if discharged. Informed patient he has said similar things in the past and we wont be going through same cycle and my recommendation for placement stands, will ask nurse to review information. Patient became angry, patient also seen walking over to another patients room and grabbing their food, when nurse confronts him, he became aggressive. REVIEW OF SYSTEMS Constitutional: Negative for weight loss ENT: Negative for stridor Respiratory: Negative for cough or hemoptysis All other systems reviewed and are negative MENTAL STATUS EXAMINATION General Appearance: dressed appropriately Behavior: calm and cooperative. Mood: Depressed Affect and affective range: restricted, depressed Thought Process: goal directed Thought Content: Hallucinations Speech: Normal volume, Regular rate and rhythm Suicidal Ideation: Suicidal Homicidal Ideation: Denies HI Hallucinations: Auditory Delusions: None elicited Insight and Judgment: Limited Memory: Normal Assessment and Plan - Psychiatric problem (1) Major Depressive Disorder, Severe Current Visit: Yes Status: Acute (2) Cocaine Use Disorder Current Visit: Yes Status: Acute (3)Substance Induced Mood Disorderr Current Visit: Yes Status: Acute RECOMMENDATIONS Started haldol 2mg BID Start home depakote 500mg po BID Start Trazodone 50mg po qh Risks, benefits and alternatives of medications discussed with the patient, questions answered and consent obtained from patient. PSYCHOTHERAPY: Supportive psychotherapy provided MEDICAL: Per primary team DELIRIUM PRECAUTIONS: Please re-orient patient frequently, keep lights on during the day, and minimize benzodiazepines and opiates as these medications could worsen patient's confusion. 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 Please contact with any questions and/or concerns. Mental Status Exam - Vital signs Last Vital Signs Temp 98.3 F 03/12/20 19:18 Pulse 93 H 03/12/20 19:18 Resp 20 03/12/20 19:18 BP 122/88 03/12/20 19:18 Pulse Ox 96 03/12/20 19:18
[2020-03-13] MEDS: HALOPERIDOL 2 MG TAB PO SCH ×2 (09:44→22:23)
[2020-03-13] MEDS: DIVALPROEX ER 500 MG TAB PO SCH ×2 (09:44→22:23)
[2020-03-13 14:35] LABS: Basophils # (Auto) 0.1 K/mm3 (0.0-0.1); Basophils % (Auto) 0.7 % (0.0-1.8); Eosinophils # (Auto) 0.2 K/mm3 (0.0-0.4); Eosinophils % (Auto) 2.6 % (0.0-4.3); Hematocrit 45.2 % (35.5-45.6); Hemoglobin 15.6 gm/dl (11.8-15.2); Lymphocytes # (Auto) 2.2 K/mm3 (1.2-5.4); Lymphocytes % (Auto) 23.7 % (13.4-35.0); Mean Corpuscular HGB Conc 34 % (32-34); Mean Corpuscular Volume 96 fl (84-94); Monocytes # (Auto) 1.2 K/mm3 (0.0-0.8); Monocytes % (Auto) 13.2 % (0.0-7.3); Platelet Count 254 K/mm3 (140-440); Red Blood Count 4.73 M/mm3 (3.65-5.03); Red Cell Distribution Width 13.2 % (13.2-15.2)
[2020-03-13] MEDS: traZODone 50 MG TAB PO SCH (22:23)
--- NOTE | 2020-03-14 09:50 | Progress Note ---
Subjective - Reason for Consult Consult date: 03/14/20 Reason for consult: MHE Requesting physician: ROBERTO MCCARTHY - Chief Complaint Chief complaint: Psych HPI Saw Mr Ornelas in room this AM, he is requesting to be discharged, angry and irritable. Again I informed patient he has a very similar pattern of behavior, coming in with SI, Hi and then requesting discharge 2-3 days later. I informed him the importance of mental health intervention for his mood disability. REVIEW OF SYSTEMS Constitutional: Negative for weight loss ENT: Negative for stridor Respiratory: Negative for cough or hemoptysis All other systems reviewed and are negative MENTAL STATUS EXAMINATION General Appearance: dressed appropriately Behavior: calm and cooperative. Mood: irritable, Affect and affective range: angry, irritated and dysthymic Thought Process: goal directed Thought Content: Hallucinations Speech: Normal volume, Regular rate and rhythm Suicidal Ideation: denies Homicidal Ideation: Denies HI Hallucinations: Auditory Delusions: None elicited Insight and Judgment: Limited Memory: Normal Assessment and Plan - Psychiatric problem (1) Major Depressive Disorder, Severe Current Visit: Yes Status: Acute (2) Cocaine Use Disorder Current Visit: Yes Status: Acute (3)Substance Induced Mood Disorderr Current Visit: Yes Status: Acute RECOMMENDATIONS Started haldol 2mg BID Start home depakote 500mg po BID Start Trazodone 50mg po qh Risks, benefits and alternatives of medications discussed with the patient, questions answered and consent obtained from patient. PSYCHOTHERAPY: Supportive psychotherapy provided MEDICAL: Per primary team DELIRIUM PRECAUTIONS: Please re-orient patient frequently, keep lights on during the day, and minimize benzodiazepines and opiates as these medications could worsen patient's confusion. TITLE SPECIALIST: DISPOSITION: Recommend acute inpatient psychiatric hospitalization at this time LEGAL STATUS: 1013 FOLLOW-UP: Will follow Thank you for the consult. Please contact with any questions and/or concerns. Mental Status Exam - Vital signs Last Vital Signs Temp 98.0 F 03/14/20 08:16 Pulse 67 03/14/20 08:16 Resp 18 03/14/20 08:16 BP 120/74 03/14/20 08:16 Pulse Ox 100 03/14/20 08:16
[2020-03-14] MEDS: HALOPERIDOL 2 MG TAB PO SCH ×2 (11:28→22:23)
[2020-03-14] MEDS: DIVALPROEX ER 500 MG TAB PO SCH ×2 (11:28→22:23)
[2020-03-14] MEDS: traZODone 50 MG TAB PO SCH (22:23)
[2020-03-15 00:13] LABS: Blood Urea Nitrogen 18 mg/dL (9-20); Calcium 9.4 mg/dL (8.4-10.2); Hemolysis Index 113
[2020-03-15 00:16] LABS: BUN/Creatinine Ratio 30
--- NOTE | 2020-03-15 09:23 | Progress Note ---
Subjective - Reason for Consult Consult date: 03/15/20 Reason for consult: MHE Requesting physician: CLAY MCLEOD - Chief Complaint Chief complaint: Psych HPI Patient seen this AM, brighter affect, reports speaking to his hospice case manager, has been provided with a detention information that he would like to go to and has perisstently denies SI thoughts for 3 days now. REVIEW OF SYSTEMS Constitutional: Negative for weight loss ENT: Negative for stridor Respiratory: Negative for cough or hemoptysis All other systems reviewed and are negative MENTAL STATUS EXAMINATION General Appearance: dressed appropriately Behavior: calm and cooperative. Mood: irritable, Affect and affective range: angry, irritated and dysthymic Thought Process: goal directed Thought Content: Hallucinations Speech: Normal volume, Regular rate and rhythm Suicidal Ideation: denies Homicidal Ideation: Denies HI Hallucinations: Auditory Delusions: None elicited Insight and Judgment: Limited Memory: Normal Assessment and Plan - Psychiatric problem (1) Major Depressive Disorder, Severe Current Visit: Yes Status: Acute (2) Cocaine Use Disorder Current Visit: Yes Status: Acute (3)Substance Induced Mood Disorderr Current Visit: Yes Status: Acute RECOMMENDATIONS Started haldol 2mg BID Start home depakote 500mg po BID Start Trazodone 50mg po qh Risks, benefits and alternatives of medications discussed with the patient, questions answered and consent obtained from patient. PSYCHOTHERAPY: Supportive psychotherapy provided MEDICAL: Per primary team DELIRIUM PRECAUTIONS: Please re-orient patient frequently, keep lights on during the day, and minimize benzodiazepines and opiates as these medications could worsen patient's confusion. 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 Please contact with any questions and/or concerns. Mental Status Exam - Vital signs Last Vital Signs Temp 98.3 F 03/15/20 01:10 Pulse 95 H 03/15/20 01:10 Resp 20 03/15/20 01:10 BP 127/68 03/15/20 01:10 Pulse Ox 98 03/15/20 01:10
[2020-03-15] MEDS: DIVALPROEX ER 500 MG TAB PO SCH (10:17)
[2020-03-15] MEDS: HALOPERIDOL 2 MG TAB PO SCH (10:23)
[2020-03-15 10:29] VITALS: BP 127/77
== END 2020-03-15 14:39 ==
LOC: ED 12:12 → EEVIPCON 12:12 → ED 03-15 14:39
DX: R45.851 Suicidal ideations (principal); R45.850 Homicidal ideations; R44.2 Other hallucinations; Z72.89 Other problems related to lifestyle; F14.10 Cocaine abuse, uncomplicated; F31.9 Bipolar disorder, unspecified; J44.9 Chronic obstructive pulmonary disease, unspecified; Z79.899 Other long term (current) drug therapy; Z91.013 Allergy to seafood
CPT/HCPCS: 36415; 73110; 80048; 80307; 81001; 85007; 85025; 99285; U0003; 80320; G0480